=== PATIENT | male | born 1940 | race Caucasian/White ===

== ENCOUNTER → 2017-12-18 | Outpatient (CLI) | payer MEDICARE, OTHER ==
[~2017-12-18] MED LIST: AMLODIPINE BESY10 MG PO; LEVOTHYROXINE 0.1 MG PO; LISINOPRIL20 MG PO; OMEPRAZOLE20 M1 PO
== END ==
LOC: M.CT 12:27
DX: K80.20 Calculus of gallbladder without cholecystitis without obstruction (principal); K40.90 Unilateral inguinal hernia, without obstruction or gangrene, not specified as recurrent; I10 Essential (primary) hypertension; I49.5 Sick sinus syndrome; Z95.0 Presence of cardiac pacemaker

== ENCOUNTER → 2018-01-01 | Outpatient (CLI) | payer MEDICARE, OTHER | LOC: M.ULTRA 07:51 | DX: K80.10 Calculus of gallbladder with chronic cholecystitis without obstruction (principal); K40.91 Unilateral inguinal hernia, without obstruction or gangrene, recurrent; I10 Essential (primary) hypertension ==

== ENCOUNTER → 2018-02-23 | Outpatient (CLI) | payer MEDICARE, OTHER | LOC: M.ULTRA 10:08 | DX: R26.81 Unsteadiness on feet (principal); R42 Dizziness and giddiness; I10 Essential (primary) hypertension ==

== ENCOUNTER → 2019-01-12 | Outpatient (CLI) | payer MEDICARE, OTHER | LOC: M.RAD 16:57 | DX: J98.4 Other disorders of lung (principal); E78.00 Pure hypercholesterolemia, unspecified; R07.89 Other chest pain ==

== ENCOUNTER 2019-04-29 11:45 | Emergency (ER) | payer MEDICARE, OTHER ==
[~2019-04-29] VITALS: Ht 180.3 cm; Wt 85.7 kg
[2019-04-29] MEDS ORDERED: PROSCAR 5MG TABL5 MG PO (11:55)
[2019-04-29] MEDS ORDERED: COZAAR 50 MG TA50 M1 PO (11:55)
[2019-04-29 12:07] LABS: ABSOLUTE EOSINOPHILS 0.2 thou/uL (0.0-0.7); ABSOLUTE LYMPHOCYTES 1.2 thou/uL (0.8-5.3); ABSOLUTE MONOCYTES 0.7 thou/uL (0.0-1.2); ABSOLUTE NEUTROPHILS 4.4 thou/uL (1.6-8.1); BASOPHILS 0.6 %; EOSINOPHILS 2.5 %; HEMOGLOBIN 15.9 gm/dL (14.0-18.0); LYMPHOCYTES 18.6 %; MCH 28.7 pg (26.0-34.0); MCHC 33.9 g/dL (28.0-37.0); MCV 84.5 fL (80.0-100.0); MONOCYTES 10.4 %; MPV 8.6 fl. (7.2-11.1); NUCLEATED RBCS 0 /100WBC; PLATELET COUNT* 194 thou/uL (150-400); POLYS 67.9 %; RBC 5.56 mil/uL (4.50-6.00); RDW-CV 13.6 % (10.5-14.5); WBC 6.5 thou/uL (4.0-11.0)
[2019-04-29 12:15] LABS: ANION GAP 8 mmol/L (7-16); BUN 15 mg/dL (7-18); CALCIUM 8.5 mg/dL (8.5-10.1); CHLORIDE 103 mmol/L (98-107); CO2 29 mmol/L (21-32); CREATININE 1.2 mg/dL (0.6-1.3); GLUCOSE 124 mg/dL (70-99); POTASSIUM 3.4 mmol/L (3.5-5.1); SODIUM 140 mmol/L (136-145)
[2019-04-29 12:16] LABS: PROTIME 10.7 Seconds (9.20-11.50)
[2019-04-29 12:26] LABS: ALBUMIN 3.5 g/dL (3.4-5.0); ALKALINE PHOSPHATASE 69 U/L (46-116); LIPASE 87 U/L (73-393); NT-PRO BRAIN NAT PEPTIDE 148 pg/mL (<300); SGOT 23 U/L (15-37); SGPT 43 U/L (30-65); TOTAL BILIRUBIN 0.6 mg/dL (<0.1-1.0); TOTAL PROTEIN 7.2 g/dL (6.4-8.2); TROPONIN-I LEVEL <0.06 ng/mL (<0.06)
[2019-04-29] MEDS ORDERED: ONDANSETRON HCL4 M2 PO (15:07)
[2019-04-29] MEDS ORDERED: TRAMADOL 50 MG50 MG PO (15:07)
[2019-04-29 15:17] VITALS: BP 130/81
--- NOTE | 2019-04-30 12:48 | EKG ---
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1940 Requested By: Colton Rosario Order Number: [id number] MD: Raul Lama Measurements Intervals [place] Rate: 74 P: PA: 106 QRS: -6 QRSD: 95 T: -30 QT: 391 QTc: 434 Interpretive Statements Atrial-paced rhythm Inferior infarct, age indeterminate Baseline wander in lead(s) I,III,aVL Compared to ECG 06/17/2016 10:01:00 Sinus bradycardia no longer present Myocardial infarct finding still present Electronically Signed On 04-30-2019 12:48:05 CDT by Raul Lama [email or web address] <ELECTRONICALLY SIGNED> By: Raul Lama MD, [facility] 04/30/19 1248 1151 1151 Raul Lama MD, [facility] /EPI
== END 2019-04-29 15:18 | disposition home or self-care (01) ==
LOC: M.ERS 11:45
PROVIDERS: Emergency Medicine
DX: K80.20 Calculus of gallbladder without cholecystitis without obstruction (principal); R42 Dizziness and giddiness; I10 Essential (primary) hypertension; E78.5 Hyperlipidemia, unspecified; Z90.49 Acquired absence of other specified parts of digestive tract; Z95.0 Presence of cardiac pacemaker

== ENCOUNTER 2019-05-25 05:58 | Observation (INO) | payer MEDICARE, OTHER ==
[~2019-05-25] VITALS: Ht 180.3 cm; Wt 82.6 kg
--- NOTE | ~2019-05-25 | H ---
[address] [address] HISTORY AND PHYSICAL Name: ROVERTO TROTTER Room: [address] Nadya Bhardwaj#: [id number] Admission: 05/25/19 Attend Phys: Ewa El DO Discharge: 05/26/19 Date of : 40 Report #: [id number] THIS REPORT FOR: //name// Please refer to the History and Physical performed in the physician's office. By: 0701Medical Records Staff SHANA /BE
[~2019-05-25 05:58] MED LIST changes: +COZAAR 50 MG TA50 M1 PO; +LUBRICANT EYE1 EACH OPHTHALMIC; +ONDANSETRON HCL4 M2 PO; +PROSCAR 5MG TABL5 MG PO; +TRAMADOL 50 MG50 MG PO
--- NOTE | 2019-05-25 09:36 | OP ---
[address] [address] OPERATIVE REPORT Name: ROVERTO TROTTER Room: [facility]#: [id number] Admission: 05/25/19 Attend Phys: Ewa El DO Discharge: Date of : 40 Report #: [id number] THIS REPORT FOR: //name// CC: Ewa Thompson MD DICTATED BY: Manjinder Zaragoza DO DATE OF SERVICE: 05/25/2019 Manjinder Zaragoza DO, PGY-3, dictating operative report on behalf of Dr. Ewa El. PREOPERATIVE DIAGNOSIS: Cholelithiasis. POSTOPERATIVE DIAGNOSES: Cholelithiasis and chronic cholecystitis. PROCEDURES PERFORMED: Laparoscopic cholecystectomy, primary repair of umbilical hernia. SURGEON: Ewa El DO ASSISTANTS: Manjinder Zaragoza, PGY-3 and Mynor PGY-5 ANESTHESIA: General and local. ESTIMATED BLOOD LOSS: 20. SPECIMEN: Gallbladder. COMPLICATIONS: None. HISTORY OF PRESENT ILLNESS: The patient is a pleasant 78-year-old male with a history of cholelithiasis. He did have a right upper quadrant discomfort associated with greasy, fried, fatty foods. Did discuss the nature of symptomatic cholelithiasis and recommended laparoscopic cholecystectomy. Risks, alternatives and benefits discussed include bleeding, infection, injury to surrounding structures, possible open procedure and possible risks of anesthesia. He acknowledged his understanding and agreed to proceed with surgery. DESCRIPTION OF PROCEDURE: After consent was obtained, the patient was taken to the operating room and placed in the supine position. SCDs were applied to bilateral lower extremities. Safety belt was placed across the patient's waist. [place] [id number] OPERATIVE REPORT Name: ROVERTO TROTTER Room: [facility]#: [id number] Admission: 05/25/19 Attend Phys: Ewa El DO Discharge: Date of : 40 Report #: [id number] Antibiotics were given for surgical prophylaxis. General anesthesia was administered without any complication. The patient was then prepped and draped in the standard sterile fashion. Timeout was performed to confirm the patient, procedure. A #11 blade scalpel was used to make a transverse incision just below the umbilicus. Electrocautery was used for hemostasis. S retractor was used to isolate an umbilical hernia. Umbilical hernia was reduced into the abdomen. Hemostat was used to bluntly enter the peritoneum. An 11 mm Lavon trocar was inserted into the abdomen. Insufflation was initiated. Camera was inserted into the abdomen. Intraabdominal contents were inspected. There were some adhesions in the right lower quadrant. There were also some significant adhesions to the gallbladder. Another 5 mm trocar was placed subxiphoid. The gallbladder was grasped. Two more 5 mm trocars were placed in the right upper quadrant. Gallbladder grasped and elevated. Attention was turned to releasing adhesions to the lateral aspect of the gallbladder. These adhesions were firm in nature and they appeared to be adhered to the liver as well as the gallbladder. These adhesions were taken down. Attention was turned towards isolating the cystic duct and cystic artery. The visceral peritoneum was scored just above the area of the cystic duct. Dissection was carried out laterally and again medially. [place] dissector was used to bluntly isolate the cystic duct. The duct could be easily seen going into the gallbladder. Again, blunt dissection was used to clear out the fat and structures of the gallbladder. The cystic artery was isolated bluntly with [place] dissector. Both structures could be seen easily going up into the gallbladder. Critical view of safety was obtained. Cystic duct was clipped 3 times distally and once proximally. Cystic artery was clipped twice distally, once proximally. Both structures were cut. Electrocautery was used to dissect the gallbladder off the bed of the liver. There was very minimal bleeding from the liver bed. Electrocautery was used for hemostasis as best as possible. The gallbladder fossa was irrigated copiously and all fluid was suctioned out. There was still some residual oozing. A one large strip of Surgicel was placed in the gallbladder fossa and omentum was tucked up underneath the gallbladder and its contents were placed into the laparoscopic EndoCatch bag. At this point, once hemostasis was ensured, insufflation was let down and all trocars were removed under direct visualization. Gallbladder and its contents were removed from the infraumbilical incision. The gallbladder did have multiple small stones within it. Infraumbilical fascia was closed with 1 stitch of 0 Vicryl in a [id number]-yg-[id number] fashion after the hernia sac and its contents were completely reduced. Subcutaneous tissue was closed with 3-0 Vicryl and all skin incisions were closed with 4-0 Monocryl. Sterile dressing was applied over top. All counts were correct at the end of the case x 2. <ELECTRONICALLY SIGNED> By: Ewa lE DO 05/25/19 0936 3 [id number] El DO /nt
[2019-05-25] MEDS ORDERED: OXYCODONE HCL 55 MG PO (09:43)
[2019-05-25 14:44] LABS: HEMATOCRIT 40.2 % (42.0-52.0); HEMOGLOBIN 13.6 gm/dL (14.0-18.0)
[2019-05-25 16:00] VITALS: BP 127/72
[2019-05-25 16:50] VITALS: BP 132/80
--- NOTE | 2019-05-25 18:26 | NUR ---
PT A&OX3 NO C/O PAIN. VSS DENIES N/V/DIZZINESS AT THIS TIME. PT RESTING IN BED WITH CALL LIGHT IN REACH. IV PROMETHAZINE ADMIN ORDERED TO ADDRESS C/O NAUSEA. NS RUNNING AT 60 ML/HR. PT PROVIDED PILLOW FOR SPLINTING ABDOMEN NEEDED. ALL SURGICAL DRESSINGS ARE CLEAN AND INTACT. SCOPALAMINE PATCH DATED AND PLACED BEHIND L EAR.
[2019-05-25 20:00] VITALS: BP 127/73
[2019-05-26] VITALS: BP 96/62
[2019-05-26 03:50] VITALS: BP 138/70
--- NOTE | 2019-05-26 05:32 | NUR ---
PATIENT SLEPT MOST OF THE NIGHT. PATIENT HAD NO COMPLAINTS OF PAIN. IV FLUIDS CONTINUE AT 60 ML/HR. PATIENT TOLERATED BOX LUNCH LAST NIGHT WITH NO COMPLAINTS OF NAUSEA. DRESSING TO LAP SITES REMAIN INTACT. PATIENT SHOULD DISCHARGE HOME TODAY. WILL CONTINUE TO MONITOR.
[2019-05-26 08:30] VITALS: BP 142/85
[2019-05-26 09:23] VITALS: BP 138/70
--- NOTE | 2019-05-26 10:10 | NUR ---
PATIENT DISCHARGED TO HOME. DISCHARGE PAPERS REVIEWED AND SIGNED. PRESCRIPTION GIVEN YESTERDAY TO SPOUSE. IV REMOVED. PATIENT HAS TOLERATED BREAKFAST WITHOUT NAUSEA. PATIENT HAS BEEN UP AD SAMANTHA WALKING IN HALLS. PATIENT HAS DENIED NEED FOR PAIN MEDICATION. PATIENT DENIES ANY FURTHER NEEDS AT THIS TIME. PATIENT TAKEN BY WHEELCHAIR TO EXIT. LEFT WITH .
--- NOTE | 2019-05-27 11:07 | PATH ---
[address] [address] PATHOLOGY RPT PROCEDURE Name: ROVERTO POPE Room: [address] Nadya Bhardwaj#: [id number] Admission: 05/25/19 Date of : 40 Discharge: 05/26/19 Report #: [id number] Path Case #: [id number] [facility] Accession Number: [id number] . 01 Material submitted: . gallbladder - GALLBLADDER AND CONTENTS . 01 Clinical history: . Cholelithiasis . 02 Diagnosis: Gallbladder and contents: - Chronic cholecystitis, cholesterolosis and cholelithiasis with benign sentinel lymph node showing lipophagic reaction. . (OLGA:mml; 05/26/2019) QLM 05/26/2019 1633 Local . 02 Electronically signed: . Pk Curtis MD, Pathologist NPI- [id number] . 01 Gross description: . Received in formalin labeled "Roverto Pope, gallbladder and contents," is an intact, green-myers gallbladder measuring 8.0 x 3.8 x 2.5 cm. The margin is inked black. Opening reveals the gallbladder contains dark green, viscous bile and multiple black gravel-like calculi measuring 2.9 x 2.0 x 1.1 cm in aggregate dimensions. The mucosa is green-brown, velvety, with focal areas of erosion and scattered yellow flecks, with an average wall thickness of 0.1 cm. No polyps or mass lesions are identified. Adjacent to the neck is a lymph node measuring approximately 0.8 x 0.5 x 0.5 cm. Bilingual Teacher Assistant tissue submitted in cassettes A1 and A2, with the lymph node in A2. (TSD; 05/25/2019) TOB/TOB 05/26/2019 1631 Local . 02 Pathologist provided ICD-10: K80.10, K82.4 . 02 CPT . 434687 Specimen Comment: A courtesy copy of this report has been sent to Specimen Comment: [phone], . Specimen Comment: Report sent to / DR CARTER Performed at: [address] [facility], [place], [place] [id number] MD Jorge Villavicencio MD Phone: [phone] [place] [address] PATHOLOGY RPT PROCEDURE Name: ROVERTO POPE Room: [address] Nadya Bhardwja#: [id number] Admission: 05/25/19 Date of : 40 Discharge: 05/26/19 Report #: [id number] Path Case #: [id number] Performed at: 02 [facility] [address] [place], [place] [id number] MD Pk Curtis MD Phone: [phone]
== END 2019-05-26 10:10 | disposition home or self-care (01) ==
LOC: M.SUR 05:58 → M.TBA-ER 16:13 → M.3W 16:13
PROVIDERS: ADMIT Surgery
DX: K80.10 Calculus of gallbladder with chronic cholecystitis without obstruction (principal); K42.9 Umbilical hernia without obstruction or gangrene; Z79.899 Other long term (current) drug therapy

== ENCOUNTER 2019-07-25 19:47 | Inpatient (IN) | payer MEDICARE, OTHER ==
[~2019-07-25] VITALS: Ht 180.3 cm; Wt 87.0 kg
[2019-07-25 19:58] VITALS: BP 144/82
[2019-07-25 20:32] LABS: ABSOLUTE EOSINOPHILS 0.1 thou/uL (0.0-0.7); ABSOLUTE LYMPHOCYTES 1.4 thou/uL (0.8-5.3); ABSOLUTE MONOCYTES 1.1 thou/uL (0.0-1.2); BASOPHILS 0.4 %; EOSINOPHILS 0.9 %; HEMATOCRIT 47.6 % (42.0-52.0); HEMOGLOBIN 16.1 gm/dL (14.0-18.0); LYMPHOCYTES 14.9 %; MCH 28.5 pg (26.0-34.0); MCHC 33.8 g/dL (28.0-37.0); MCV 84.3 fL (80.0-100.0); MONOCYTES 11.2 %; MPV 8.5 fl. (7.2-11.1); NUCLEATED RBCS 0 /100WBC; PLATELET COUNT* 205 thou/uL (150-400); POLYS 72.6 %; RBC 5.64 mil/uL (4.50-6.00); RDW-CV 13.4 % (10.5-14.5); WBC 9.6 thou/uL (4.0-11.0)
[2019-07-25 20:41] LABS: CALCIUM 8.9 mg/dL (8.5-10.1); POTASSIUM 3.5 mmol/L (3.5-5.1)
[2019-07-25 20:46] LABS: ALBUMIN 3.5 g/dL (3.4-5.0); TOTAL BILIRUBIN 0.6 mg/dL (<0.1-1.0); TOTAL PROTEIN 7.4 g/dL (6.4-8.2)
[2019-07-25 22:23] LABS: URINE BILIRUBIN NEGATIVE (Negative); URINE BLOOD NEGATIVE (Negative); URINE CLARITY CLEAR; URINE COLOR YELLOW; URINE GLUCOSE-RANDOM NEGATIVE (Negative); URINE KETONES 1+ (Negative); URINE LEUKOCYTES-REFLEX NEGATIVE (Negative); URINE NITRITE-REFLEX NEGATIVE (Negative); URINE PROTEIN NEGATIVE (Negative); URINE SPECIFIC GRAVITY <= 1.005 (1.005-1.030); URINE UROBILINOGEN 0.2 E.U./dl (0.2-1.0)
[2019-07-25 23:14] VITALS: BP 144/82
[2019-07-25 23:19] VITALS: BP 142/92
[2019-07-26 04:00] VITALS: BP 124/85
--- NOTE | 2019-07-26 05:54 | NUR ---
PT ADMITTED TO ROOM 215 DURING THIS SHIFT; VSS, A+OX4, UP AD SAMANTHA, ROOM AIR, HAVING ABDOMINAL PAIN. HE IS ABLE TO COMMUNICATE HIS NEEDS TO STAFF EFFECTIVELY. HE HAS DENIED THE NEED FOR PAIN MEDICATION UP TO THIS TIME. HE HAS BEEN NPO SINCE MIDNIGHT FOR GI AND SURGERY CONSULTS LATER TODAY.
--- NOTE | 2019-07-26 07:20 | NUR ---
CHANGE OF SHIFT, BEDSIDE REPORT GIVEN PATIENT SEEN AT BEDSIDE, IN BED ASLEEP ASSUMED PATIENT CARE
[2019-07-26 07:58] LABS: HEMATOCRIT 42.8 % (42.0-52.0); HEMOGLOBIN 14.7 gm/dL (14.0-18.0); MCH 28.6 pg (26.0-34.0); MCHC 34.3 g/dL (28.0-37.0); MCV 83.5 fL (80.0-100.0); MPV 8.1 fl. (7.2-11.1); RBC 5.13 mil/uL (4.50-6.00); RDW-CV 13.4 % (10.5-14.5); WBC 4.8 thou/uL (4.0-11.0)
[2019-07-26 08:00] VITALS: BP 144/88
[2019-07-26 08:10] LABS: CALCIUM 8.2 mg/dL (8.5-10.1); CREATININE 1.1 mg/dL (0.6-1.3); MAGNESIUM 2.2 mg/dL (1.8-2.4); POTASSIUM 3.8 mmol/L (3.5-5.1); TOTAL BILIRUBIN 0.7 mg/dL (<0.1-1.0); TOTAL PROTEIN 6.3 g/dL (6.4-8.2)
--- NOTE | 2019-07-26 11:21 | NUR ---
Pt is A&O. Resides at home with his . Independent and active. No DME. No hx of HH or SNF. Goal is home at dc, no needs anticipated.
[2019-07-26 12:05] VITALS: BP 139/91
[2019-07-26 13:19] LABS: CHOLESTEROL 173 mg/dL (<200); HDL CHOLESTEROL 25 mg/dL (>40); LDL CHOLESTEROL 124 mg/dL (<100); TC:HDL 6.9 Ratio (Not establshd); TRIGLYCERIDE 121 mg/dL (<150); VLDL 24 mg/dL (<40)
[2019-07-26 13:23] LABS: SERUM ASSESSMENT Clear
--- NOTE | 2019-07-26 16:51 | EKG ---
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 07/26/191650 50 50 Joaquin Melendez MD, FACC /EPI
[2019-07-26 20:19] VITALS: BP 130/81
[2019-07-27] VITALS: BP 127/83
[2019-07-27 04:00] VITALS: BP 97/79
[2019-07-27 04:31] LABS: ABSOLUTE EOSINOPHILS 0.2 thou/uL (0.0-0.7); ABSOLUTE LYMPHOCYTES 1.3 thou/uL (0.8-5.3); ABSOLUTE MONOCYTES 0.8 thou/uL (0.0-1.2); ABSOLUTE NEUTROPHILS 3.5 thou/uL (1.6-8.1); BASOPHILS 0.4 %; EOSINOPHILS 3.4 %; HEMOGLOBIN 14.2 gm/dL (14.0-18.0); LYMPHOCYTES 21.9 %; MCH 28.5 pg (26.0-34.0); MCHC 33.7 g/dL (28.0-37.0); MCV 84.5 fL (80.0-100.0); MONOCYTES 13.7 %; MPV 8.3 fl. (7.2-11.1); NUCLEATED RBCS 0 /100WBC; PLATELET COUNT* 196 thou/uL (150-400); POLYS 60.6 %; RBC 4.97 mil/uL (4.50-6.00); RDW-CV 13.3 % (10.5-14.5); WBC 5.8 thou/uL (4.0-11.0)
[2019-07-27 04:33] LABS: CALCIUM 7.5 mg/dL (8.5-10.1); POTASSIUM 3.6 mmol/L (3.5-5.1)
[2019-07-27 06:36] LABS: ESR (SEDRATE) 6 mm/hr (0-20)
--- NOTE | 2019-07-27 06:45 | NUR ---
PT IS ABLE TO COMMUNICATE HIS NEEDS TO STAFF WITH MINOR DIFFICULTY; HE IS [id number]. HE HAS DENIED THE NEED FOR PAIN MEDICATION UP TO THIS TIME. HE HAS BEEN NPO SINCE MIDNIGHT FOR A UPPER GI SERIES WITH SMALL BOWEL FOLLOW THROUGH POSSIBLY LATER TODAY. POSSIBLE DISCHARGE LATER TODAY PENDING GI TESTING RESULTS. GENERAL SURGERY ALSO FOLLOWING PT.
[2019-07-27 08:00] VITALS: BP 127/90
[2019-07-27 14:35] VITALS: BP 127/90
--- NOTE | 2019-07-27 14:45 | NUR ---
ORDER RECEIVED TO DISCHARGE PATIENT HOME TO SELF CARE.MED REC, MEDICATION RECONCILIATION, STROKE EDUCATION, AND NEED FOR FOLLOW UP CARE WITH DR CARTER COVERED AND STATED UNDERSTOOD. IV AND TELEMETRY PACK REMOVED. MIGUEL ANGEL ZAMBRANO ADEQUATE TIME FOR ALL QUESTIONS TO BE ANSWERED. MIGUEL ANGEL CHOSE TO AMBULATE TO AWAITING CAR WITH SPOUSE PRESENT.
--- NOTE | 2019-07-29 22:46 | CON ---
[address] [address] CONSULTATION Name: ROVERTO TROTTER Room: [address] IN [facility].#: [id number] Admission: 07/25/19 Attend Phys: Tiesha Zamora MD Discharge: 07/27/19 Date of : 40 Report #: [id number] THIS REPORT FOR: //name// CC: Joaquin Zamora DICTATED BY: Fariha DASH DATE OF SERVICE: 07/26/2019 This is HARDY Jaffe-, dictating consultation note for Dr. Domenic Paez. Please note at the time of this dictation, the patient was seen and physically examined by myself. REASON FOR CONSULTATION: Abdominal pain. HISTORY OF PRESENT ILLNESS: This is a 78-year-old male who presented to the Emergency Room with severe abdominal pain that he had been having for about 3 days, which he rated a 10/10 when he was here yesterday. The patient had a CAT scan done as an outpatient on 07/25 prior to admission that showed some abnormal small bowel wall enhancement and some nonspecific bowel wall thickening in the distal descending and sigmoid colon. The patient states that his bowels move daily, soft and formed and he feels that he has not had any issues with constipation. He did initially have some constipation issues after his surgery back in May when he was taking some pain medicine, which he started taking a stool softener as well. The patient states he had a colonoscopy done several years back at [facility] and he has had several at the [place] as well. He does not recall any abnormality at that time. He states his pain is better as well as no more feeling nauseous. He states he is very hungry as well. ALLERGIES: No known drug allergies. MEDICATIONS: From home include levothyroxine, eye lubricant, Proscar, Cozaar, amlodipine and some omeprazole. PAST MEDICAL HISTORY: Hypertension, hypothyroidism, hyperlipidemia. The patient has a personal history of psoriasis on his leg. PAST SURGICAL HISTORY: Cholecystectomy, pacemaker, bilateral inguinal hernia and appendectomy, and removal of the right thyroid. FAMILY HISTORY: Negative for [place] [address] CONSULTATION Name: ROSE MARIEROVERTO Fuller Room: [address]#: [id number] Admission: 07/25/19 Attend Phys: Tiesha Zamora MD Discharge: 07/27/19 Date of : 40 Report #: [id number] SOCIAL HISTORY: Denies any alcohol, tobacco or illegal drug use. FAMILY HISTORY: Negative for any GI or female cancers or any autoimmune disease that he can recall. REVIEW OF SYSTEMS: Twelve-point review of systems is essentially negative except what is mentioned in the HPI. PHYSICAL EXAMINATION: VITAL SIGNS: Temperature 37, pulse 74, respirations 18, blood pressure 144/88. HEART: Regular rate and rhythm. LUNGS: Clear. ABDOMEN: Soft, positive bowel sounds in all 4 quadrants, with just some very mild discomfort noted on the left side. LABORATORY DATA: Hemoglobin is 14.7, white count is 4.8, platelets 189. GFR is 65. Again, CT showed short segment of small bowel wall thickening consistent with some enteritis as well as some mild mid transverse and distal descending in colon that is very nonspecific. IMPRESSION: 1. Abdominal pain, improved. 2. Abnormal CT. 3. Personal history of psoriasis. 4. Recent cholecystectomy and umbilical hernia repair. PLAN: 1. Clear liquid diet. 2. We will obtain his records from [facility] for his last colon done a few years back. 3. MiraLax b.i.d. 4. Further recommendations to be made once Dr. Paez reviews the CT, and we obtain his records. Thank you for allowing us to participate in this patient's care. Please do not hesitate to call with any questions in regard to this consult. <ELECTRONICALLY SIGNED> By: Domenic Paez DO 07/29/19 2246 0939 [id number] Paez DO /nt
== END 2019-07-27 16:00 | disposition home or self-care (01) | DRG 920 ==
LOC: M.ERS 19:47 → M.2W 21:55 → M.TBA-ER 21:55 → M.2W 23:20
PROVIDERS: Internal Medicine; Physician Assistant; ADMIT Internal Medicine
DX: K91.872 Postprocedural seroma of a digestive system organ or structure following a digestive system procedure (principal); E46 Unspecified protein-calorie malnutrition; A08.4 Viral intestinal infection, unspecified; K91.870 Postprocedural hematoma of a digestive system organ or structure following a digestive system procedure; E78.5 Hyperlipidemia, unspecified; E89.0 Postprocedural hypothyroidism; N40.0 Benign prostatic hyperplasia without lower urinary tract symptoms; I10 Essential (primary) hypertension; K74.60 Unspecified cirrhosis of liver; Y83.8 Other surgical procedures as the cause of abnormal reaction of the patient, or of later complication, without mention of misadventure at the time of the procedure; Z90.49 Acquired absence of other specified parts of digestive tract; Z79.899 Other long term (current) drug therapy; Z95.0 Presence of cardiac pacemaker; Z85.850 Personal history of malignant neoplasm of thyroid; Z68.26 Body mass index [BMI] 26.0-26.9, adult

== ENCOUNTER → 2019-07-25 | Outpatient (CLI) | payer MEDICARE, OTHER ==
[~2019-07-25] MED LIST changes: -LEVOTHYROXINE 0.1 MG PO; +OXYCODONE HCL 55 MG PO; +SYNTHROID100 MC1 PO
[2019-07-25 17:02] LABS: ABSOLUTE EOSINOPHILS 0.1 thou/uL (0.0-0.7); ABSOLUTE LYMPHOCYTES 1.2 thou/uL (0.8-5.3); ABSOLUTE MONOCYTES 0.9 thou/uL (0.0-1.2); ABSOLUTE NEUTROPHILS 6.7 thou/uL (1.6-8.1); BASOPHILS 0.5 %; HEMATOCRIT 47.4 % (42.0-52.0); LYMPHOCYTES 13.1 %; MCH 28.4 pg (26.0-34.0); MCHC 33.8 g/dL (28.0-37.0); MCV 84.2 fL (80.0-100.0); MONOCYTES 10.2 %; MPV 8.5 fl. (7.2-11.1); NUCLEATED RBCS 0 /100WBC; PLATELET COUNT* 211 thou/uL (150-400); POLYS 75.2 %; RBC 5.63 mil/uL (4.50-6.00); RDW-CV 13.3 % (10.5-14.5); WBC 8.9 thou/uL (4.0-11.0)
[2019-07-25 17:14] LABS: ALBUMIN 3.6 g/dL (3.4-5.0); CALCIUM 9.2 mg/dL (8.5-10.1); CREATININE 1.1 mg/dL (0.6-1.3); POTASSIUM 3.6 mmol/L (3.5-5.1); TOTAL BILIRUBIN 0.5 mg/dL (<0.1-1.0); TOTAL PROTEIN 7.7 g/dL (6.4-8.2)
[2019-07-26 17:08] LABS: HEPATITIS B SURFACE AG Negative (Negative)
== END ==
LOC: M.CT 16:21
PROVIDERS: Internal Medicine
DX: K40.90 Unilateral inguinal hernia, without obstruction or gangrene, not specified as recurrent (principal); J98.11 Atelectasis; K76.0 Fatty (change of) liver, not elsewhere classified; Z90.49 Acquired absence of other specified parts of digestive tract; Z95.5 Presence of coronary angioplasty implant and graft